=== PATIENT | female | born 1990 | race African-American/Black ===

== ENCOUNTER → 2024-03-30 | Day surgery (SDC) | payer OTHER ==
[~2024-03-30] MED LIST: FENTANYL CITRATE/PF 100MCG/2 ML INJ ONE; HYOSCYAMINE SULFATE 0.5 MG/ML INJ ONE; PANTOPRAZOLE SO20 MG PO; PRENATAL PO; PROPOFOL IV EMULSION 50 ML IV ONE
[2024-03-30] MEDS: LACTATED RINGER'S 1,000 ML ONE (10:15)
[2024-03-30 11:24] VITALS: TEMP 97.2
[2024-03-30 11:48] VITALS: BP 120/80; PULSE 81; RESP 18; O2SAT 100
== END | disposition home or self-care (01) ==
LOC: OR 09:27
PROVIDERS: ATTEND Internal Medicine Gastroenterology
DX: K59.09 Other constipation (principal); K92.1 Melena; K64.8 Other hemorrhoids; K21.9 Gastro-esophageal reflux disease without esophagitis; Z71.3 Dietary counseling and surveillance; D64.9 Anemia, unspecified; M54.9 Dorsalgia, unspecified; Z68.32 Body mass index [BMI] 32.0-32.9, adult
CPT/HCPCS: 45380; 81025; J1980; J2704; J3010; J7121; 45378